=== PATIENT | female | born 1940 | race Caucasian/White ===

== ENCOUNTER → 2017-05-12 | Outpatient (CLI) | payer OTHER | LOC: BHFA 10:15 | PROVIDERS: ATTEND Internal Medicine Interventional Cardiology | DX: R53.83 Other fatigue (principal); Z82.3 Family history of stroke; R94.31 Abnormal electrocardiogram [ECG] [EKG] ==

== ENCOUNTER → 2017-05-20 | Outpatient (CLI) | payer OTHER | LOC: BHFA 13:00 | PROVIDERS: ATTEND Internal Medicine Cardiovascular Disease | DX: R94.31 Abnormal electrocardiogram [ECG] [EKG] (principal); R53.83 Other fatigue | CPT/HCPCS: 78452; 93017; A9500; J2785 ==

== ENCOUNTER → 2017-05-21 | Outpatient (CLI) | payer OTHER | LOC: BHFA 10:00 | PROVIDERS: ATTEND Internal Medicine Cardiovascular Disease | DX: R94.31 Abnormal electrocardiogram [ECG] [EKG] (principal); R53.83 Other fatigue; I77.9 Disorder of arteries and arterioles, unspecified; Z82.49 Family history of ischemic heart disease and other diseases of the circulatory system ==

== ENCOUNTER → 2018-07-27 | Outpatient (CLI) | payer OTHER | LOC: BHFA 09:45 | PROVIDERS: ATTEND Internal Medicine Interventional Cardiology | DX: R94.31 Abnormal electrocardiogram [ECG] [EKG] (principal); I10 Essential (primary) hypertension ==